=== PATIENT | female | born 1985 | race Two or more races ===

== ENCOUNTER 2021-01-04 00:11 | Emergency (ER) | payer MEDICAID ==
[~2021-01-04] VITALS: Ht 152.4 cm; Wt 117.9 kg
[2021-01-04 00:14] VITALS: BP 144/95
[2021-01-04] MEDS ORDERED: CYCL10TA9 PO (00:37)
[2021-01-04] MEDS ORDERED: IBUP-1957 PO (00:37)
[2021-01-04] MEDS ORDERED: KETOROLAC TROMETHAMINE INJ 60 MG/2 ML VIAL IM ONE ×2 (00:44→01:00)
[2021-01-04] MEDS ORDERED: CARISOPRODOL 350 MG TABLET ONE (00:44)
[2021-01-04] MEDS ORDERED: CARISOPRODOL 350 MG TABLET PO ONE (01:00)
== END 2021-01-04 00:57 | disposition home or self-care (01) ==
LOC: ER 00:14
DX: M62.838 Other muscle spasm (principal); M54.12 Radiculopathy, cervical region; G44.209 Tension-type headache, unspecified, not intractable; Z98.890 Other specified postprocedural states
CPT/HCPCS: 93005; 96374; 99283; J1885